=== PATIENT | female | born 1960 | race Caucasian/White ===

== ENCOUNTER 2022-08-13 07:00 | Outpatient (RCR) | payer OTHER, SELFPAY ==
[2022-07-07 08:05] VITALS: BP 140/80; PULSE 95; O2SAT 97
--- NOTE | 2022-07-07 14:27 | MHC.PT.EP ---
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 Pt has reported intolerance for bearing weight in her knee since injury, has D/C use of crutches. Therapist is recommending she utilize std cane in L UE to off-set pressure on her R knee to improve gait mechanics. Pt reports she does not currently have a std cane and was educated to look into local [facility] to obtain/borrow one/purchase one. Pt expressing she had an xray from [facility] post injury with results per pt to be severe OA. Pt exhibits significant edema of the R LE, impaired strength, and impaired ROM which is impacting her functional mobility. She has a full flight to her bedroom doing stairs step to pattern for over 10 years. She reports she has been OOW since injury ([employer]). Pt may benefit from orthopedic consultation. (? benefit of receiving injection or discussing options of anti-inflammatories such as celebrex to ease in edema/pain). Pt was advised to initiate icing of her knee to reduce edema and pain post therex. AROM R knee -3 to 90 with painful empty endfeel. Pt was educated regarding goals of PT to improve ROM, strength of core/hips/knee, in addition to benefts of weight loss to ease her symptoms. Pt was educated in the benefit of having a ortho consulting in conjunction with PT. Pt expresses initial fear of consulting with ortho following her history of L TKA post op course complicated by a bowel obstruction 10 years ago. After conversation with therapist, patient was more open to such a referral. Pt would benefit from attending skilled PT services at a frequency of 2x/week x 4 weeks to address impairments, implement HEP, and restore functional mobility tolerance to resume PLOF. Pt expressing she has a restorator pedal cycle at home. Post eval we discussed the benefit in performing gentle rocking for gentle ROM AAROM to tolerance in addition to performing gentle seated heel slides small reps frequently throughout the day. Poor tolerance for active quad contraction/SLR this date so quad sets were not added. Patient may strongly benefit from referral to orthopedics in addition to PT services. Xray from R knee at [facility] was not available for therapist to review per pt severe OA R knee per pt. Frequency and Duration: The patient will be seen 2x/week x 4 weeks Short Term Goals: 1. AROM R knee extension 0 degrees. (-3 degrees). 2. AROM R knee flexion to 100 degrees. (90 degrees). 3. Sit<>stand on first attempt. 4. Improve hip strength on R abductor to 4/5. (IR: significant compensation R hip flexion, poor quad control). 5. Reduce frequency of knee buckling on the right LE. [employer] Goals: 1. Pt will perform I SLR with good eccentric control. (IR: poor SLR strength). 2. Strength of R hip abduction for 5/5. 3. Improve core strength 5/5. 4. Improve pain of R knee by 50% during ADLS/IADLS. 5. AAROM flexion R knee 115 degrees. Treatment Plan: Modalities to reduce pain, spasms and effusion. Manual therapy to restore motion and function. Therapeutic exercise to improve strength and flexibility. Neuromuscular re-education for posture and balance. Therapeutic activities to return to functional activities of daily living. Electronically signed by: Fawn Walter, PT, DPT Please sign and return to therapist. Thank you for your referral.
--- NOTE | 2022-07-09 15:43 | MHC.PT.OD ---
[facility] [place] Office [place] Office [place] Office [address] Catina Dubois [address] [phone] F: [phone] F: [phone] F: [phone] F: [phone] Physical Therapy Daily Note Diagnosis: PT eval and treat; pain in R knee date of script 06/18/22 signed by Melody Love NP Date of Surgery: Date of Evaluation: 07/07/22 Date of Treatment: 07/09/22 Treatments to Date: Cancellations to Date: No Shows to Date: Authorized Visits: 2 Insurance End Date: Precautions/ Contraindications:R LE weakness, buckling Subjective: I nearly fell down twice because my knee gave out, the pain was nauseating. I went into work for something and my knee gave out when I went to turn slowly. Presents to office with new std cane in L UE. Pain Score and Location: 4 R knee Objective Flowsheet: Tests & Measures see eval AROM -3 to 90 R KNEE Poor quad control EDEMA Exercises Seated HS stretch x 4R x 20 sec hold, trial gastroc and soleus stretch no stretch felt instead anterior knee pain of garvin so this was D/C. Reviewed seated gentle heel slides x 10 sec hold x 5R, gentle ankle dangle movements LAQ reviewed as comfort. Poor tolerance for isometric quad set due to pain. Held bike due to poor ROM tolerance observed with flexion. assisted extension stretch with ice anterior posterior knee x 10 minutes combo with application of SELECT ESTIM TENS for level 3.5 mA intensity x 15 minutes in effort to ease knee pain/ reduce inflammation. AAROM heel slides in sitting with chair x 10 sec hold x5R, AAROM supine heel slides x 10 sec hold x 5R. Education re: use of restorator for gentle rocking movement Trialed on seated bike for gentle rocking attempted with poor tolerance posterior partial revolutions better tolerated. Seated HS stretch in chair reviewed x 4R x 20 sec hold, Education to initiate icing, education to find std cane purchase/borrow/obtain from [facility] for next session use of it in the L UE Trial of V strip with third strip to ease knee goal of offloading tibiofemoral knee joint in effort to ease sx. Education re: application/removal/indications for use. Adjustment of new std cane for patient. Review of gait training with cues for sequencing with use of cane in L UE with R LE support. Reviewed sequencing of stairs at time of eval to reduce stress, ie ascending with L LE, descending with R LE. Pt educated due to instabilty and buckling of the knee, a RW would offer greater support/stability, pt states, I dont want to use a walker. Reiterated the different levels of support/impact of safety with degree of R knee edema and weakness which is present. Modalities Assessment: 07/09/22: Pt presents to office today with newly purchased standard cane. I adjusted the height of it to maximize her support with cane in L UE, and educated her in a step to>through pattern. She was educated in the benefit of considering use of walker due to her reporting her knee giving out numerous times since last session. Pt expressing she is not willing to use a walker. Pt was noted to be tearful in regard to her pain/current symptoms. She brought in her x-ray report with her (see hardcopy chart). She reports severe stomach upset with attempted use of ibuprofen (has since D/C 800mg prescription) and has reported scant intermittent use of tylenol. Pt was encouraged to ice her knee several times daily in effort to ease edema/sx. Due to severity of sx, painful ROM, and xray results therapist is recommending a referral be made to orthopedics to assess questionable benefit of potential cortisone injection, consult re: potential need for a TKA, or alternative medication option due to poor tolerance with ibuprofen- ?celebrex. Pt also asks how to apply for FMLA I'm going to need to do something if I am out any longer. Pt was advised to consult with her PCP about medication recommendations moving ahead. Pt was trialed with use of TENS machine combo with ice in effort to ease sx with limited relief this date. Significant edema and poor quad control impacting tolerance for activities noted. Trial of ROCKTAPE to off-load tibiofemoral joint with limited ? relief reported. 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 Pt has reported intolerance for bearing weight in her knee since injury, has D/C use of crutches. Therapist is recommending she utilize std cane in L UE to off-set pressure on her R knee to improve gait mechanics. Pt reports she does not currently have a std cane and was educated to look into local [facility] to obtain/borrow one/purchase one. Pt expressing she had an xray from [facility] post injury with results per pt to be severe OA. Pt exhibits significant edema of the R LE, impaired strength, and impaired ROM which is impacting her functional mobility. She has a full flight to her bedroom doing stairs step to pattern for over 10 years. 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 Pt may benefit from orthopedic consultation. (? benefit of receiving injection or discussing options of anti-inflammatories such as celebrex to ease in edema/pain). Pt was advised to initiate icing of her knee to reduce edema and pain post therex. AROM R knee -3 to 90 with painful empty endfeel. Pt was educated regarding goals of PT to improve ROM, strength of core/hips/knee, in addition to benefts of weight loss to ease her symptoms. Pt was educated in the benefit of having a ortho consulting in conjunction with PT. Pt expresses initial fear of consulting with ortho following her history of L TKA post op course complicated by a bowel obstruction 10 years ago. After conversation with therapist, patient was more open to such a referral. Pt would benefit from attending skilled PT services at a frequency of 2x/week x 4 weeks to address impairments, implement HEP, and restore functional mobility tolerance to resume PLOF. Pt expressing she has a restorator pedal cycle at home. Post eval we discussed the benefit in performing gentle rocking for gentle ROM AAROM to tolerance in addition to performing gentle seated heel slides small reps frequently throughout the day. Poor tolerance for active quad contraction/SLR this date so quad sets were not added. Patient may strongly benefit from referral to orthopedics in addition to PT services. Xray from R knee at [facility] was not available for therapist to review per pt severe OA R knee per pt. PT Plan: 2x/week x 4 weeks core/hip/knee strength gentle ROM edema management, pain management gait training with std cane in L UE Short Term Goals: 1. AROM R knee extension 0 degrees. (-3 degrees). 2. AROM R knee flexion to 100 degrees. (90 degrees). 3. Sit<>stand on first attempt. 4. Improve hip strength on R abductor to 4/5. (IR: significant compensation R hip flexion, poor quad control). 5. Reduce frequency of knee buckling on the right LE. [employer] Goals: 1. Pt will perform I SLR with good eccentric control. (IR: poor SLR strength). 2. Strength of R hip abduction for 5. 3. Improve core strength /5. 4. Improve pain of R knee by 50% during ADLS/IADLS. 5. AAROM flexion R knee 115 degrees. Electronically signed by: Fawn Walter, PT, DPT
--- NOTE | 2022-07-21 08:32 | MHC.PT.OD ---
[facility] [place] Office [place] Office [place] Office [address] Catina Dubois [address] [phone] F: [phone] F: [phone] F: [phone] F: [phone] Physical Therapy Daily Note Diagnosis: PT eval and treat; pain in R knee date of script 06/18/22 signed by Melody Love NP Date of Surgery: Date of Evaluation: 07/07/22 Date of Treatment: 07/21/22 Treatments to Date: Cancellations to Date: No Shows to Date: Authorized Visits: 4 Insurance End Date: Precautions/ Contraindications:R LE weakness, buckling Subjective: Pt expressing she has stopped using a std cane last week, denies hx buckling, reports has been using the 800mb ibuprofen twice daily. Requests RTW note- Pain Score and Location: 4 R knee Objective Flowsheet: Tests & Measures see eval AROM -3 to 100 R KNEE Fair quad control EDEMA Exercises Seated ankle rocking seat #10 backward for movements x five minutes, gentle AROM post seated heel slides. Attempt for staning hip abd with RTB (not tolerated on either LE so D/C) completed, Prostretch x 4 minutes each side for sustained hold stretch, standing TKE with RTB x 2 sets 10R (issued for home today), standing hip abduction, standing hip extension x 2 sets 10R with GTB cues for unlocking the knee, Seated HS stretch x 4R x 20 sec hold, stand<>sit and sit<>stand x 5R, seated heel slides x 5R x 20 sec hold, SLR into flexion with improved ability and tolerance x 10R (educated to aim for midrange hold at this time), Reviewed seated gentle heel slides x 10 sec hold x 5R able to achieve 100 degrees this date, gentle ankle dangle movements LAQ reviewed as comfort. Passive extension stretch with ice anterior posterior knee x 10 minutes combo with application of SELECT ESTIM TENS for level 4.0 mA intensity x 15 minutes in effort to ease knee pain/ reduce inflammation. AAROM heel slides in sitting with chair x 10 sec hold x5R, AAROM supine heel slides x 10 sec hold x 5R. Education re: use of restorator for gentle rocking movement Seated HS stretch in chair reviewed x 4R x 20 sec hold, Trial of V strip with third strip to ease knee goal of offloading tibiofemoral knee joint in effort to ease sx. Education re: application/removal/indications for use. Adjustment of new std cane for patient. Review of gait training with cues for sequencing with use of cane in L UE with R LE support. Reviewed sequencing of stairs at time of eval to reduce stress, ie ascending with L LE, descending with R LE. Pt educated due to instabilty and buckling of the knee, a RW would offer greater support/stability, pt states, I dont want to use a walker. Reiterated the different levels of support/impact of safety with degree of R knee edema and weakness which is present. Modalities Assessment: 07/21/22: Patient presents to office requesting a RTW note. Pt educated she needs to make a walk-in with her PCP for this. Pt continues to express pain in her knee but reports she has D/C use std cane. Reports she has been icing her knee a few times per day and is able to now perform SLR with improvement. Reports improved stomach tolerance for use of ibuprofen after therapist reiterated she needs to take with food. Therapist continues to recommend an orthopedic referral due to patient status. 07/14/22: Pt is demonstrating improvement in range of motion and tolerance compared to previous sessions. Pt expressing improved response with use of ibuprofen now that she adapted how she was taking it/eating more with it. Pt able to complete SLR into flexion with good tolerance. AAROM flexion to 100 degrees. Able to perform posterior revolutions on bike; she was educated re: benefit in using restorator for home prn to aide in mobilty. Issued SLR into flexion, AAROM heel slides in sitting/supine and chair squats (painfree for knee only). 07/09/22: Pt presents to office today with newly purchased standard cane. I adjusted the height of it to maximize her support with cane in L UE, and educated her in a step to>through pattern. She was educated in the benefit of considering use of walker due to her reporting her knee giving out numerous times since last session. Pt expressing she is not willing to use a walker. Pt was noted to be tearful in regard to her pain/current symptoms. She brought in her x-ray report with her (see hardcopy chart). She reports severe stomach upset with attempted use of ibuprofen (has since D/C 800mg prescription) and has reported scant intermittent use of tylenol. Pt was encouraged to ice her knee several times daily in effort to ease edema/sx. Due to severity of sx, painful ROM, and xray results therapist is recommending a referral be made to orthopedics to assess questionable benefit of potential cortisone injection, consult re: potential need for a TKA, or alternative medication option due to poor tolerance with ibuprofen- ?celebrex. Pt also asks how to apply for FMLA I'm going to need to do something if I am out any longer. Pt was advised to consult with her PCP about medication recommendations moving ahead. Pt was trialed with use of TENS machine combo with ice in effort to ease sx with limited relief this date. Significant edema and poor quad control impacting tolerance for activities noted. Trial of ROCKTAPE to off-load tibiofemoral joint with limited ? relief reported. 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 Pt has reported intolerance for bearing weight in her knee since injury, has D/C use of crutches. Therapist is recommending she utilize std cane in L UE to off-set pressure on her R knee to improve gait mechanics. Pt reports she does not currently have a std cane and was educated to look into local [facility] center to obtain/borrow one/purchase one. Pt expressing she had an xray from [facility] post injury with results per pt to be severe OA. Pt exhibits significant edema of the R LE, impaired strength, and impaired ROM which is impacting her functional mobility. She has a full flight to her bedroom doing stairs step to pattern for over 10 years. 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 Pt may benefit from orthopedic consultation. (? benefit of receiving injection or discussing options of anti-inflammatories such as celebrex to ease in edema/pain). Pt was advised to initiate icing of her knee to reduce edema and pain post therex. AROM R knee -3 to 90 with painful empty endfeel. Pt was educated regarding goals of PT to improve ROM, strength of core/hips/knee, in addition to benefts of weight loss to ease her symptoms. Pt was educated in the benefit of having a ortho consulting in conjunction with PT. Pt expresses initial fear of consulting with ortho following her history of L TKA post op course complicated by a bowel obstruction 10 years ago. After conversation with therapist, patient was more open to such a referral. Pt would benefit from attending skilled PT services at a frequency of 2x/week x 4 weeks to address impairments, implement HEP, and restore functional mobility tolerance to resume PLOF. Pt expressing she has a restorator pedal cycle at home. Post eval we discussed the benefit in performing gentle rocking for gentle ROM AAROM to tolerance in addition to performing gentle seated heel slides small reps frequently throughout the day. Poor tolerance for active quad contraction/SLR this date so quad sets were not added. Patient may strongly benefit from referral to orthopedics in addition to PT services. Xray from R knee at [place] was not available for therapist to review per pt severe OA R knee per pt. PT Plan: 2x/week x 4 weeks core/hip/knee strength gentle ROM edema management, pain management gait training with std cane in L UE Short Term Goals: 1. AROM R knee extension 0 degrees. (-3 degrees). 2. AROM R knee flexion to 100 degrees. (90 degrees). 3. Sit<>stand on first attempt. 4. Improve hip strength on R abductor to 4/5. (IR: significant compensation R hip flexion, poor quad control). 5. Reduce frequency of knee buckling on the right LE. [employer] Goals: 1. Pt will perform I SLR with good eccentric control. (IR: poor SLR strength). 2. Strength of R hip abduction for 5/5. 3. Improve core strength 5/5. 4. Improve pain of R knee by 50% during ADLS/IADLS. 5. AAROM flexion R knee 115 degrees. Electronically signed by: Fawn Walter, PT, DPT
== END 2023-05-21 09:34 | disposition home or self-care (01) ==
LOC: HO.PTWFD 07:00
PROVIDERS: PCP Hospitalist; Visit Provider Hospitalist
DX: M25.561 Pain in right knee (principal)
CPT/HCPCS: 97014; 97110; 97116; 97150; 97161; 97530; 97535